=== PATIENT | male | born 1955 | race African-American/Black ===

== ENCOUNTER 2019-01-27 10:13 | Emergency (ER) | payer SELFPAY ==
[~2019-01-27] VITALS: Ht 172.7 cm; Wt 59.0 kg
[2019-01-27 10:35] VITALS: BP 148/88
[2019-01-27] MEDS ORDERED: NORVASC2.5 MG ORAL ×2 (10:39→10:50)
[2019-01-27 10:55] VITALS: BP 148/88
--- NOTE | 2019-01-27 10:58 | Emergency Room Report ---
History of Present Illness General Chief Complaint: Medication Refill Source: Patient Present Illness HPI Patient presents with reports of hypertension And reports that he has not had his medications for long period of time, since last April Denies any chest pain or shortness of breath denies any headache denies any abdominal pain Patient also would like referral to a psychiatric physician for further discussion Denies any acute homicidal or suicidal thoughts Denies any auditory or visual hallucinations Allergies: Coded Allergies: HALOPERIDOL (Verified Allergy, Unknown, 01/27/19) Patient History Past Medical History: see triage record Pertinent Family History: none Reviewed Nursing Documentation: PMH: Agreed; PSxH: Agreed Nursing Documentation-PM Past Medical History: No History, Except For Hx Cardiac Problems: No Hx Hypertension: Yes Hx Pacemaker: No Hx Diabetes: No Hx Cancer: No Hx Gastrointestinal Problems: No Hx Dialysis: No History Of Psychiatric Problem: Yes - Bipolar, Schizophrenia Hx Neurological Problems: No Hx Cerebrovascular Accident: No Hx Seizures: No Review of Systems All Other Systems: negative except mentioned in HPI Physical Exam Vital Signs Date Time Temp Pulse Resp B/P (MAP) Pulse Ox O2 Delivery O2 Flow Rate FiO2 01/27/19 10:22 98.2 96 16 99 Room Air 01/27/19 10:35 148/88 Sp02 EP Interpretation: reviewed, normal General Appearance: well appearing, no apparent distress Head: normocephalic, atraumatic Eyes: bilateral eye PERRL, bilateral eye EOMI ENT: hearing grossly normal, normal pharynx, TMs + canals normal, uvula midline Neck: full range of motion, supple, no meningismus, no bony tend Respiratory: lungs clear, normal breath sounds, no rhonchi, no respiratory distress, no retraction, no accessory muscle use Cardiovascular #1: normal peripheral pulses, regular rate, rhythm, no edema, no gallop, no JVD, no murmur Gastrointestinal: normal bowel sounds, non tender, soft, no mass, no organomegaly, non-distended, no guarding, no hernia, no pulsatile mass, no rebound Genitourinary: no CVA tenderness Musculoskeletal: normal inspection Neurologic: oriented x3, responsive, antiquer III-XII nml as tested, motor strength/ tone normal, sensory intact Psychiatric: mood/affect normal Skin: normal color, no rash, warm/dry, palpation normal Lymphatic: normal inspection, no adenopathy Medical Decision Making Diagnostic Impression: Primary Impression: hypertension ER Course Patient has a benign medical evaluation Prescription was provided Patient also asking for referral for outpatient psychiatric services, this is provided for the patient there is no further criteria for further inpatient workup Denies any suicidal or homicidal thoughts, does not have any auditory or visual hallucinations Stable for close follow-up Last Vital Signs Date Time Temp Pulse Resp B/P (MAP) Pulse Ox O2 Delivery O2 Flow Rate FiO2 01/27/19 10:55 98.2 96 16 148/88 99 Room Air Status: improved Disposition: HOME, SELF-CARE Condition: Stable Scripts Amlodipine Besylate (Norvasc) 2.5 Mg Tablet 2.5 MG ORAL DAILY, #15 TAB Prov: Karl Quinonez DO 01/27/19 Referrals: [facility] Patient Instructions: Medicine Refill at the Emergency Department, Hypertension , [id number] Additional Instructions: Patient is provided with the discharge instructions notified to follow up with primary doctor in the next 2-3 days otherwise return to the er with any worsening symptoms. Please note that this report is being documented using [employer] technology. This can lead to erroneous entry secondary to incorrect interpretation by the dictating instrument. Karl Quinonez DO January 27, 2019 10:58
== END 2019-01-27 10:55 | disposition home or self-care (01) ==
LOC: EMR 10:35
DX: I10 Essential (primary) hypertension (principal); Z76.0 Encounter for issue of repeat prescription; F20.9 Schizophrenia, unspecified; F31.9 Bipolar disorder, unspecified; Z88.8 Allergy status to other drugs, medicaments and biological substances
CPT/HCPCS: 99282

== ENCOUNTER 2019-01-28 23:01 | Emergency (ER) | payer SELFPAY ==
[~2019-01-28 23:01] MED LIST: NORVASC2.5 MG ORAL
--- NOTE | 2019-01-28 23:15 | NUR ---
ED Nurse Note: Patient left triage room, refusing to be seen. patient stormed off violently. patient at no distress. patient left ambulatory and walking a steady gait, unable to take vitals.
--- NOTE | 2019-01-28 23:16 | NUR ---
Note jess in [facility] - 01/28/19 at 2317 by LONNIE ED Nurse Note: Patient left triage room.
== END 2019-01-28 23:15 | disposition left against medical advice (07) ==
LOC: EMR 23:15
DX: J45.909 Unspecified asthma, uncomplicated (principal); Z53.21 Procedure and treatment not carried out due to patient leaving prior to being seen by health care provider